=== PATIENT | male | born 1975 | race Caucasian/White ===

== ENCOUNTER 2022-01-21 17:15 | Observation (INO) | payer BC ==
[2022-01-21] MEDS ORDERED: GLUCAGON 1 MG/VIAL ONE ×2 (17:52→19:15)
--- NOTE | 2022-01-21 18:17 | RAD REPORT ---
EXAM DESCRIPTION: RAD - Chest Single View - 01/21/2022 5:45 pm CLINICAL HISTORY: HEMOPTYSIS Chest pain. COMPARISON: No comparisons FINDINGS: Portable technique limits examination quality. The lungs are grossly clear. The heart is normal in size. No displaced fractures. IMPRESSION: No acute intrathoracic process suspected.
[2022-01-21 18:27] LABS: Absolute Lymphocytes (CBC) 1.8 K/uL (0.7-4.9); Hematocrit 42.5 % (39.6-49.0); Lymphocytes % 22.2 % (15.3-44.8); MPV 8.3 fL (7.6-11.3)
[2022-01-21 18:37] LABS: Potassium 3.8 mmol/L (3.5-5.1)
--- NOTE | 2022-01-21 19:05 | EDPHYS ---
Physician Documentation [facility] Name: Jefferson Degroot Age: 46 yrs Sex: Male : 1975 Arrival Date: 01/21/2022 Time: 17:16 Bed 15 Private MD: Hardeep Yan E ED Physician Markos Beavers HPI: 01/21 18:04 This 46 yrs old Male presents to ER via Ambulatory with complaints of Chest Pain, jr8 Swallowed Foreign Body. 18:04 The patient or guardian reports the patient has a suspected foreign body, that has been jr8 ingested. The reported likely foreign body is piece of meat. Onset: The symptoms/episode began/occurred acutely, today. Current symptoms: foreign body sensation, pain, in the chest, a pressure, spit up blood. The patient has experienced a previous episode. The patient has not recently seen a physician. This is a 46-year-old male patient presented to the emergency room after swallowing a large piece of chicken that he feel got caught in his lower esophageal region. Stated that he has had chest tightness since then and inability to swallow fluids without regurgitating it. Stated that he is also spit up some blood from his regurgitation. Has a history of stricture in the past with dilation. Stated that he has been doing well after his last dilation until today.. Historical: - Allergies: 17:37 No Known Allergies; jb4 - Home Meds: 17:37 fluoxetine Oral [Active]; jb4 - PMHx: 17:37 food bolus; jb4 - PSHx: 17:37 throat dilation; jb4 - Immunization history:: Adult Immunizations unknown. - Social history:: Smoking status: Patient denies any tobacco usage or history of. Patient/guardian denies using alcohol, street drugs. ROS: 18:04 Eyes: Negative for injury, pain, redness, and discharge, ENT: Negative for injury, jr8 pain, and discharge, Neck: Negative for injury, pain, and swelling, Respiratory: Negative for shortness of breath, cough, wheezing, and pleuritic chest pain, Back: Negative for injury and pain, MS/Extremity: Negative for injury and deformity, Skin: Negative for injury, rash, and discoloration, Neuro: Negative for headache, weakness, numbness, tingling, and seizure. 18:04 Cardiovascular: Positive for chest pain, Negative for edema, orthopnea, palpitations, paroxysmal nocturnal dyspnea. 18:04 Abdomen/GI: Positive for nausea. Exam: 18:04 Constitutional: This is a well developed, well nourished patient who is awake, alert, jr8 and in no acute distress. Neck: Trachea midline, no thyromegaly or masses palpated, and no cervical lymphadenopathy. Supple, full range of motion without nuchal rigidity, or vertebral point tenderness. No Meningismus. Cardiovascular: Regular rate and rhythm with a normal S1 and S2. No gallops, murmurs, or rubs. Normal PMI, no JVD. No pulse deficits. Respiratory: Lungs have equal breath sounds bilaterally, clear to auscultation and percussion. No rales, rhonchi or wheezes noted. No increased work of breathing, no retractions or nasal flaring. Abdomen/GI: Soft, non-tender, with normal bowel sounds. No distension or tympany. No guarding or rebound. No evidence of tenderness throughout. Back: No spinal tenderness. No costovertebral tenderness. Full range of motion. Skin: Warm, dry with normal turgor. Normal color with no rashes, no lesions, and no evidence of cellulitis. MS/ Extremity: Pulses equal, no cyanosis. Neurovascular intact. Full, normal range of motion. Neuro: Awake and alert, GCS 15, oriented to person, place, time, and situation. Motor strength 5/5 in all extremities. Sensory grossly intact. Vital Signs: 17:25 BP 160 / 100; Pulse 55; Resp 15; Pulse Ox 97% on R/A; Weight 87.54 kg (R); Height 5 ft. jb4 11 in. (180.34 cm) (R); Pain 9/10; 19:00 BP 140 / 86; Pulse 60; Resp 16; Pulse Ox 98% on R/A; leila 20:23 BP 133 / 95; Pulse 60; Resp 18; Pulse Ox 96% on R/A; Pain 0/10; leila 17:25 Body Mass Index 26.92 (87.54 kg, 180.34 cm) jb4 MDM: 17:28 Patient medically screened. jr8 18:59 ED course: Patient has had another round of blood-tinged vomitus present in the emesis jr8 bag. I have called Dr. Elder and reiterated this to him and recommended that he go to the OR for retrieval tonight. Dr. Elder is concerned he may aspirate and wants to wait till the morning.. 19:04 Data reviewed: vital signs, nurses notes, lab test result(s), radiologic studies, CT jr8 scan, plain films. Data interpreted: Pulse oximetry: on room air is 97 %. Interpretation: normal. Counseling: I had a detailed discussion with the patient and/or guardian regarding: the historical points, exam findings, and any diagnostic results supporting the discharge/admit diagnosis, lab results, radiology results, the need for further work-up and treatment in the hospital. 20:02 ED course: Escelated case to Dr. Ross and Dr. Gonzalez to evaluate case. Both agree that jr8 patient needs EGD tonight. Dr. Gonzalez called Dr. Elder who is now coming in to evaluate and take patient to GI suite for EGD. 01/21 17:37 Order name: CBC with Diff; Complete Time: 18:45 [facility] 01/21 17:37 Order name: Basic Metabolic Panel; Complete Time: 18:45 [facility] 01/21 17:37 Order name: XRAY Chest (1 view); Complete Time: 18:25 [facility] 01/21 20:35 Order name: SARS-COV-2 RT PCR [facility] 01/21 20:36 Order name: Influenza Screen (A [facility] 01/21 17:37 Order name: IV; Complete Time: 17:59 8 01/21 19:01 Order name: CT Chest Wo Con; Complete Time: 20:17 jr Administered Medications: 17:58 Drug: GlucaGen (glucagon) 1 mg Route: IVP; Site: left antecubital; garibay 17:58 Follow up: Response: No adverse reaction garibay 19:26 Drug: GlucaGen (glucagon) 1 mg Route: IVP; Site: left antecubital; leila 19:27 Drug: morphine 4 mg Route: IVP; Site: left antecubital; leila 19:27 Drug: Zofran (Ondansetron) 4 mg Route: IVP; Site: left antecubital; leila Disposition Summary: 01/21/22 19:05 Hospitalization Ordered Hospitalization Status: Observation jr8 Condition: Stable jr8 Problem: new jr8 Symptoms: have improved jr8 Bed/Room Type: Standard [facility] Provider: Hakan Elder(01/21/22 20:02) jr8 Location: Operating Room(01/21/22 20:02) [facility] Room Assignment: (01/21/22 20:02) [facility] Diagnosis - Foreign body in esophagus [facility] Forms: - Medication Reconciliation Form 8 - SBAR form 8 Addendum: 01/24/2022 07:17 Co-signature as Attending Physician, Markos Beavers MD I agree with the assessment and k dr plan of care. Signatures: Dispatcher [employer] EDMS Markos Beavers MD MD [facility] Jean Pierre Dyer PA PA 8 Jasper Monaco, RN RN jb4 Julianne Wright RN RN Erika Stokes, RN RN garibay Corrections: (The following items were deleted from the chart) 01/21 20:02 19:05 Chris Ross [place] [id number] 20:02 19:05 Telemetry/MedSurg (observation) [place] [address] 20:02 19:05 [place] [address] 20:35 19:46 COVID-19/FLU A+B+MOL.LAB.BRZ ordered. EDTN EDMS
--- NOTE | 2022-01-21 19:05 | ER ---
Nurse's Notes [facility] Name: Jefferson Degroot Age: 46 yrs Sex: Male : 1975 Arrival Date: 01/21/2022 Time: 17:16 Bed 15 Private MD: Hardeep Yan E Diagnosis: Foreign body in esophagus Presentation: 01/21 17:25 Chief complaint: Patient states: I swallowed a piece of boneless chicken earlier and I jb4 feel like it is stuck. I cannot swallow anything without it coming back up. Pt spitting marjorie red blood. 17:25 Coronavirus screen: At this time, the client does not indicate any symptoms associated jb4 with coronavirus-19. Ebola Screen: No symptoms or risks identified at this time. Initial Sepsis Screen: Does the patient meet any 2 criteria? No. Patient's initial sepsis screen is negative. Does the patient have a suspected source of infection? No. Patient's initial sepsis screen is negative. Risk Assessment: Do you want to hurt yourself or someone else? Patient reports no desire to harm self or others. Onset of symptoms was January 21, 2022. Transition of care: patient was not received from another setting of care. 17:25 Method Of Arrival: Ambulatory jb4 17:25 Acuity: MEENAKSHI 2 jb4 Triage Assessment: 19:01 General: Appears in no apparent distress. Behavior is calm, cooperative. Pain: garibay Complains of pain in throat. EENT: Reports difficulty swallowing. Cardiovascular: No deficits noted. Historical: - Allergies: 17:37 No Known Allergies; jb4 - Home Meds: 17:37 fluoxetine Oral [Active]; jb4 - PMHx: 17:37 food bolus; jb4 - PSHx: 17:37 throat dilation; jb4 - Immunization history:: Adult Immunizations unknown. - Social history:: Smoking status: Patient denies any tobacco usage or history of. Patient/guardian denies using alcohol, street drugs. Screenin:00 Abuse screen: Denies threats or abuse. Denies injuries from another. Nutritional garibay screening: No deficits noted. Tuberculosis screening: No symptoms or risk factors identified. Fall Risk None identified. Assessment: 19:28 Reassessment: I recv'd report on the pt in room #15. Meds given and a Covid swab was leila done, as he is to be hospitalized. 20:24 Reassessment: The pt was taken by the the OR nurse, via wc, with his mother at bedside. leila A report was given to her before she took him. The pt was in NAD. Vital Signs: 17:25 BP 160 / 100; Pulse 55; Resp 15; Pulse Ox 97% on R/A; Weight 87.54 kg (R); Height 5 ft. jb4 11 in. (180.34 cm) (R); Pain 9/10; 19:00 BP 140 / 86; Pulse 60; Resp 16; Pulse Ox 98% on R/A; leila 20:23 BP 133 / 95; Pulse 60; Resp 18; Pulse Ox 96% on R/A; Pain 0/10; leila 17:25 Body Mass Index 26.92 (87.54 kg, 180.34 cm) jb4 ED Course: 17:16 Patient arrived in ED. mr 17:16 Hardeep Yan MD is Private Physician. mr 17:28 Jean Pierre Dyer [facility] jr8 17:28 Markos Beavers MD is Attending Physician. jr8 17:35 Erika Mcdonald, MCKENZIE is Primary Nurse. garibay 17:37 Triage completed. jb4 17:37 Arm band placed on right wrist. jb4 17:47 XRAY Chest (1 view) In Process Unspecified. EDMS 17:59 Basic Metabolic Panel Sent. garibay 17:59 CBC with Diff Sent. garibay 19:00 Patient has correct armband on for positive identification. Bed in low position. garibay telemetry monitor on. Pulse ox on. NIBP on. 19:00 No provider procedures requiring assistance completed. Inserted saline lock: 20 gauge garibay in left antecubital area, using aseptic technique. Patient maintains SpO2 saturation greater than 95% on room air. 19:05 Chris Ross MD is Hospitalizing Provider. jr8 19:51 CT Chest Wo Con In Process Unspecified. EDMS 20:02 Hakan Elder MD is Hospitalizing Provider. jr8 20:26 Patient admitted, IV remains in place. leila Administered Medications: 17:58 Drug: GlucaGen (glucagon) 1 mg Route: IVP; Site: left antecubital; garibay 17:58 Follow up: Response: No adverse reaction garibay 19:26 Drug: GlucaGen (glucagon) 1 mg Route: IVP; Site: left antecubital; leila 19:27 Drug: morphine 4 mg Route: IVP; Site: left antecubital; leila 19:27 Drug: Zofran (Ondansetron) 4 mg Route: IVP; Site: left antecubital; leila Outcome: 19:05 Decision to Hospitalize by Provider. jr8 20:25 Condition: stable leila 20:26 Admitted to leila 20:41 Patient left the ED. leila Signatures: Dispatcher [employer] KIMICT Laura Maria GomezJean Pierre PA PA jr8 Bryson, James, RN RN jb4 Julianne Wright RN RN bo Au-Stager, Heather RN MCKENZIE garibay Corrections: (The following items were deleted from the chart) 17:37 17:35 Chief complaint: carlene jbKeiry
[2022-01-21] MEDS ORDERED: MORPHINE 4 MG/ML SYR ONE (19:15)
[2022-01-21] MEDS ORDERED: ONDANSETRON 4 MG/2 ML VIAL ONE (19:15)
--- NOTE | 2022-01-21 20:05 | RAD REPORT ---
EXAM DESCRIPTION: CT - Thorax Wo Con CLINICAL HISTORY: Chest pain Foreign body suspected, chest, neg xray COMPARISON: Chest Single View dated 01/21/2022 FINDINGS: The lungs are clear. No pleural thickening or pleural effusion. No pneumothorax. No axillary, mediastinal or hilar adenopathy. No concerning bony finding. No gross upper abdominal finding. The esophagus is mildly distended with fluid. Mild inflammatory change and fluid is seen distal esoph robert. Small hiatal hernia. All CT scans are performed using dose optimization technique as appropriate and may include automated exposure control or mA/KV adjustment according to patient size. IMPRESSION: The esophagus is mildly fluid distended with mild inflammatory changes distally. Esophag itis is a possibility. No radiopaque foreign body is seen.
[2022-01-21] MEDS ORDERED: LIDOCAINE 1% MPF 5 ML VIAL ONE (20:58)
[2022-01-21] MEDS ORDERED: propofoL 200 MG/20 ML VIAL IV ONE (20:58)
[2022-01-21] MEDS ORDERED: EPINEPHRINE/PF 1 MG/ML AMP ONE (21:24)
[2022-01-21] MEDS: Ringers Lactate 1,000 ML IV ONE ×2 (21:25→22:29)
[2022-01-21] MEDS ORDERED: SODIUM CHLORIDE 0.9% 10ML INJ IV PRN (21:44)
[2022-01-21] MEDS ORDERED: PANTOPRAZOLE 40 MG INJ IVP ONE (21:46)
[2022-01-21] MEDS ORDERED: ONDANSETRON 4 MG/2 ML VIAL IV PRN (21:55)
[2022-01-21] MEDS ORDERED: MORPHINE 2 MG/ML SYR IV PRN (21:55)
[2022-01-21] MEDS ORDERED: PANTOPRAZOLE INJ 80 MG in NA CHLORIDE 0.9% 250 ML IV SCH (22:00)
[2022-01-21 22:22] VITALS: O2SAT 96
--- NOTE | 2022-01-21 22:58 | P.HP ---
Certification for Inpatient Patient admitted to: Observation With expected LOS: <2 Midnights Patient will require the following post-hospital care: None Practitioner: I am a practitioner with admitting privileges, knowledge of patient current condition, hospital course, and medical plan of care. Services: Services provided to patient in accordance with Admission requirements found in Title 42 Section 412.3 of the Code of Federal Regulations Patient History Date of Service: 01/21/22 Reason for admission: Food bolus History of Present Illness: 46-year-old male with history of esophageal stricture status post dilatation a few years prior presents the emergency department with suspected food bolus/impaction. Patient reports he was eating chicken and took a large bite rather rapidly felt like it was stuck in his esophagus followed by having some hematemesis. Patient was evaluated emergency department his labs were unremarkable GI was consulted who performed EGD, EGD revealed that the food bolus had passed although he does have significant peptic ulcer disease as well as a small Anjelica-Reilly tear GI wishes to have patient admitted under hospitalist service overnight, n.p.o. advance to clear liquids in the morning on Protonix drip for the time being. Allergies No Known Allergies Allergy (Unverified 01/21/22 21:50) - Past Medical/Surgical History -: Esophageal stricture -: Esophageal dilatation Psychosocial/ Personal History: Patient lives at home with his family - Family History Father Notes: Esophageal stricture - Social History Smoking Status: Never smoker Alcohol use: Yes CD- Drugs: No Caffeine use: Yes Place of Residence: Home Review of Systems 10-point ROS is otherwise unremarkable Gastrointestinal: Nausea, Abdominal Pain, As per HPI Physical Examination - Vital Signs Temperature: 98.8 F Blood Pressure: 122/70 Pulse: 56 Respirations: 18 - Physical Exam General: Alert, In no apparent distress, Oriented x3 HEENT: Atraumatic, PERRLA, Mucous membr. moist/pink, EOMI, Sclerae nonicteric Neck: Supple, 2+ carotid pulse no bruit, No LAD, Without JVD or thyroid abnormality Respiratory: Clear to auscultation bilaterally, Normal air movement Cardiovascular: Regular rate/rhythm, Normal S1 S2 Gastrointestinal: Normal bowel sounds, No tenderness Musculoskeletal: No tenderness Integumentary: No rashes Neurological: Normal speech, Normal strength at 5/5 x4 extr, Normal tone, Normal affect Lymphatics: No axilla or inguinal lymphadenopathy - Studies Laboratory Data (last 24 hrs) 01/21/22 17:56: Sodium 140, Potassium 3.8, BUN 10, Creatinine 1.21, Glucose 88 01/21/22 17:56: WBC 8.3, Hgb 14.5, Hct 42.5, Plt Count 319 Assessment and Plan - Plan Assessment: Food impactionresolved PUD, Anjelica-Reilly tear Plan: Food impactionresolved PUD, Anjelica-Reilly tear N.p.o. overnight continue with IV Protonix, as needed pain medications and antiemetics. Advance diet to clear liquids in the morning. Appreciate further input from GI, patient did have EGD last night which revealed the food bolus had passed but he does have peptic ulcer disease as well as a Anjelica-Reilly tear. Continue PPI therapy. DVT PPX: SCD Code status: Full Discharge Plan: Home Plan to discharge in: 24 Hours - Advance Directives Does patient have a Living Will: No Does patient have a Durable POA for Healthcare: No - Code Status/Comfort Care Code Status Assessed: Yes (Full code) Critical Care: No Time Spent Managing Pts Care (In Minutes): 55
[2022-01-21] MEDS: NA CHLORIDE 0.9% 1,000 ML IV SCH (23:07)
[2022-01-21 23:54] VITALS: BMI 23.9
--- NOTE | 2022-01-22 03:25 | CON ---
Reason For Consultation: Foreign body impaction. History Of Presenting Illness: The patient is a 46-year-old gentleman with prior history of esophage al strictures, requiring dilation, and foreign body impaction. Does not seem to be compliant with ca re as he has not seen his GI doctor for a few years, came to the ER after eating chicken, which got s tuck earlier in the day. He also has been having retching and vomited blood a few times. Past Medical History: As above. Past Surgical History: None pertinent to the current issue. Social History: Drinks alcohol frequently. Family History: Noncontributory. Review of Systems: GI: As in HPI, otherwise negative. Remainder of 10-point review of systems negative. Physical Examination: HEENT: Head is atraumatic and normocephalic. Pupils are equally reactive. Neck: Supple. Chest: Clear to auscultation bilaterally. Abdomen: Soft, nontender, nondistended. Bowel sounds present. Extremities: No pedal edema. Laboratory Data: Reviewed. Imaging: Reviewed of the chest, especially no evidence of perforation. Impression: A 46-year-old gentleman with history of esophageal stenosis, alcohol abuse likely with f ood bolus impaction. We are unclear if the food bolus is still there. He does have severe odynophag ia at this time. Plan: Keep the patient n.p.o. We will schedule him for an emergent endoscopy. The risks and compli cations of the procedure, which include, but are not limited to bleeding, infection, perforation, and anesthesia complication were discussed. The patient understands and agrees. US/MODL Voice ID: [id number] Report ID: [id number]
[2022-01-22 04:41] LABS: Absolute Lymphocytes (CBC) 1.5 K/uL (0.7-4.9); Hematocrit 39.2 % (39.6-49.0); Lymphocytes % 11.8 % (15.3-44.8); MPV 8.2 fL (7.6-11.3); RBC Red Blood Cell Count 4.31 M/uL (4.33-5.43)
[2022-01-22 04:57] LABS: Albumin 3.5 g/dL (3.4-5.0); Bilirubin Total 0.8 mg/dL (0.2-1.0); Potassium 3.9 mmol/L (3.5-5.1); Protein, Total 6.4 g/dL (6.4-8.2)
[2022-01-22 06:44] LABS: Urine Appearance Clear (Clear); Urine Bilirubin Negative (Negative); Urine Blood Negative (Negative); Urine Color Yellow (Yellow); Urine Glucose Negative (Negative); Urine Protein Negative (Negative); Urine Specific Gravity >=1.030 (1.005-1.030); Urine Urobilinogen 0.2 mg/dL (0.2-1.0); Urine pH 5.5 (5.0-7.0)
[2022-01-22 06:45] LABS: Urine Microscopic Reflex NO UMIC
[2022-01-22] MEDS: NA CHLORIDE 0.9% 1,000 ML IV SCH (08:00)
--- NOTE | 2022-01-22 08:23 | OP ---
Surgeon: Hakan Elder MD Procedure Performed: Esophagogastroduodenoscopy. Indication For Procedure: Suspected foreign body. Plan For Anesthesia: Monitored anesthesia care. Complexity: High due to the nature of this emergent therapeutic procedure. Technique: After obtaining informed consent from the patient and explaining risks and complications, which include, but are not limited to bleeding, infection, perforation, and anesthesia complication, the patient was placed in the left lateral position and sedation was given. From then on, the scope was advanced into the mouth and was carefully guided up till the stomach. It was not passed beyond the stomach due to significant amount of food retention in the stomach and to decrease risk of aspira tion into the lungs. After the completion of the examination and interventions, scope and equipment were withdrawn and procedure terminated in a safe manner. Findings: Esophagus: In the entire esophagus, there was evidence of linear corrugations and ventric ularization highly suggestive of eosinophilic esophagitis. In the distal esophagus, moderate strictu re was visualized along with severe ulceration and what appears to be a Anjelica-Reilly tear without an y active bleeding at this time. Very small amount of residual food was seen in the esophagus, which was able to be pushed into the stomach. This, however, was not causing an impaction. Stomach: Significant amount of retained food contents were seen in the stomach. Complications: None. Tolerance To Anesthesia: Excellent. Postoperative Diagnoses: Gastric retention, suspected eosinophilic esophagitis, eosinophilic strictu re, Anjelica-Reilly tear with severe ulceration. Plan: We will admit the patient to hospitalist overnight, keep him n.p.o., put him on a Protonix dri p. In the morning, the patient can be restarted on only clear liquid diet. If he is able to tolerat e, should be able to go home. He should only be on clear liquids for the next few days for the next 2-3 days and then transition to full liquid diet thereafter. He needs to be discharged home on an or al PPI b.i.d. Additionally, he will need to come and see me in the clinic for an endoscopy in 2 week s' time with biopsies and dilation of the stricture. This was discussed with the patient and the [facility] care team as well as the patient's mother. US/MODL Voice ID: [id number] Report ID: [id number]
[2022-01-22 08:28] VITALS: TEMP 98.1
[2022-01-22] MEDS ORDERED: POTASSIUM CL SA 10 MEQ TAB PO ONE (09:00)
[2022-01-22] MEDS ORDERED: PANTOPRAZOLE INJ 80 MG in NA CHLORIDE 0.9% 250 ML IV SCH (09:00)
[2022-01-22 12:39] VITALS: BP 128/75
--- NOTE | 2022-01-22 17:40 | P.DS ---
Admission Date: 01/21/22 Discharge Date: 01/22/22 Disposition: ROUTINE DISCHARGE Discharge Condition: GOOD Reason for Admission: Food bolus Consultations: GI - Dr. Elder Procedures: Problem List Food impactionresolved PUD esophageal stricture Radha-Reilly tear Brief History of Present Illness: 46-year-old male with history of esophageal stricture status post dilatation a few years prior presents the emergency department with suspected food bolus/impaction. Patient reports he was eating chicken and took a large bite rather rapidly felt like it was stuck in his esophagus followed by having some hematemesis. Patient was evaluated emergency department his labs were unremarkable GI was consulted who performed EGD Hospital Course: Patient underwent EGD by Dr. Elder and was noted to have esophagitis, radha-reilly tear with ulceration. He was treated with IV protonix drip. He tolerated clear liquids well on day of discharge. Dr. Elder recommended continue clear liquid diet for 2-3 days, then transition to full liquid diet. Follow up with Dr. Elder in ~2 weeks for repeat endoscopy, with likely biopsies and dilatation of the esophageal stricture. Prescribed Protonix twice daily. Vital Signs/Physical Exam: Temp Pulse Resp BP Pulse Ox 98.1 F 45 L 16 128/75 97 01/22/22 12:00 01/22/22 12:00 01/22/22 12:00 01/22/22 12:00 01/22/22 12:00 General: Alert, In no apparent distress, Oriented x3 HEENT: Sclerae nonicteric Respiratory: Clear to auscultation bilaterally, Normal air movement Cardiovascular: No edema, Regular rate/rhythm Gastrointestinal: Soft and benign, Non-distended, No tenderness Musculoskeletal: No tenderness Integumentary: No rashes, No significant lesion Neurological: Normal speech, Normal affect Laboratory Data at Discharge: WBC 13.1 K/uL (4.3-10.9) H D 01/22/22 03:49 Hgb 13.7 g/dL (13.6-17.9) 01/22/22 03:49 Hct 39.2 % (39.6-49.0) L 01/22/22 03:49 Plt Count 291 K/uL (152-406) 01/22/22 03:49 Sodium 138 mmol/L (136-145) 01/22/22 03:49 Potassium 3.9 mmol/L (3.5-5.1) 01/22/22 03:49 BUN 15 mg/dL (7-18) 01/22/22 03:49 Creatinine 1.07 mg/dL (0.55-1.3) 01/22/22 03:49 Glucose 93 mg/dL (74-106) 01/22/22 03:49 Total Bilirubin 0.8 mg/dL (0.2-1.0) 01/22/22 03:49 AST 15 U/L (15-37) 01/22/22 03:49 ALT 42 U/L (12-78) 01/22/22 03:49 Alkaline Phosphatase 65 U/L (45-117) 01/22/22 03:49 Home Medications: Fluoxetine HCl 20 mg PO DAILY 01/21/22 Pantoprazole Sodium [Protonix] 40 mg PO BID 30 Days #60 tablet. 01/22/22 New Medications: Pantoprazole Sodium [Protonix] 40 mg PO BID 30 Days #60 tablet. Followup: Hardeep Yan MD [Primary Care Provider] - (call to schedule appointment.) Hakan Elder MD [ACTIVE - CAN ADMIT] - (Call to schedule appointment) Time spent managing pt's care (in minutes): 45
== END 2022-01-22 12:25 | disposition home or self-care (01) ==
LOC: ER 17:15 → ERHOLD 20:37 → 2ND 22:12
PROVIDERS: ADMIT Hospitalist; ATTEND Hospitalist
PROC: 0DJ08ZZ Inspection of Upper Intestinal Tract, Via Natural or Artificial Opening Endoscopic (ICD-10-PCS; principal; 2022-01-21 20:45)
DX: T18.128A Food in esophagus causing other injury, initial encounter (principal); K22.10 Ulcer of esophagus without bleeding; K22.2 Esophageal obstruction; K22.6 Gastro-esophageal laceration-hemorrhage syndrome; K31.89 Other diseases of stomach and duodenum; F10.10 Alcohol abuse, uncomplicated; Z20.822 Contact with and (suspected) exposure to COVID-19
CPT/HCPCS: 43200; 85025 ×2; 80048; 36415; 81003; 80053; 71250; 71045; 96375; 96374; 99285; U0003; J2704; J1610 ×2; C9113 ×3; J2270; J7120; J7050 ×2; J7030 ×2; J2405 ×2; G0378 ×2; J0171

== ENCOUNTER 2024-07-08 20:25 | Emergency (ER) | payer BC ==
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
[2024-07-08 22:39] LABS: Absolute Basophils 0.1 K/uL (0-0.5); Absolute Eosinophils 0.2 K/uL (0-0.5); Absolute Lymphocytes (CBC) 1.1 K/uL (0.7-4.9); Absolute Monocytes 0.4 K/uL (0.1-1.3); Absolute Neutrophil 7.5 K/uL (1.8-8.0); Basophils % 0.8 % (0-1.3); Hematocrit 41.8 % (39.6-49.0); Lymphocytes % 11.6 % (15.3-44.8); MCH 30.4 pg (27.0-35.0); MCHC 33.6 g/dL (32.0-36.0); MCV 90.5 fL (80-100); MPV 7.9 fL (7.6-11.3); Monocytes % 4.8 % (3.3-12.3); Neutrophils % 80.8 % (41.7-73.7); Platelets 388 thou/uL (152-406); RBC Red Blood Cell Count 4.62 M/uL (4.33-5.43); Red Cell Distribution Width 13.6 % (12.1-15.2)
[2024-07-08] MEDS ORDERED: MORPHINE 4 MG/ML SYR ONE (22:48)
[2024-07-08] MEDS ORDERED: ONDANSETRON 4 MG/2 ML VIAL ONE (22:48)
[2024-07-08 22:49] LABS: Albumin 3.3 g/dL (3.4-5.0); Albumin/Globulin Ratio 0.8 (1.1-1.8); Anion Gap 7.5 mEq/L (5.0-15.0); Bilirubin Total 0.2 mg/dL (0.2-1.0); Globulin 4.1 g/dL (2.3-3.5); Potassium 3.5 mEq/L (3.5-5.1); Protein, Total 7.4 g/dL (6.4-8.2); Troponin High Sensitivity 17.4 pg/mL (<58.9)
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
[2024-07-09 12:35] VITALS: TEMP 98.3
[2024-07-09 12:42] VITALS: BP 135/93; O2SAT 97
--- NOTE | 2024-07-10 15:06 | EKG ---
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
== END 2024-07-08 23:39 | disposition home or self-care (01) ==
LOC: ER 20:25
DX: S32.049A Unspecified fracture of fourth lumbar vertebra, initial encounter for closed fracture (principal); S22.20XA Unspecified fracture of sternum, initial encounter for closed fracture; V48.5XXA Car driver injured in noncollision transport accident in traffic accident, initial encounter
CPT/HCPCS: 93005; 85025; 36415; 84484; 80053; 70450; 72125; 71260; 74177; 96375; 96374; 99284; Q9967; J2405